=== PATIENT | female | born 1970 | race Caucasian/White ===

== ENCOUNTER 2016-08-29 08:18 | Emergency (ER) | payer MEDICAID ==
[~2016-08-29] VITALS: Wt 56.0 kg
[2016-08-29] MEDS ORDERED: ONDANSETRON 4 MG INJ IV STA (08:51)
[2016-08-29] MEDS ORDERED: FAMOTIDINE 20 MG INJ IV STA (08:51)
[2016-08-29] MEDS ORDERED: LIDOCAINE/MYLANTA 40 ML BTL PO STA (08:51)
[2016-08-29] MEDS ORDERED: BELLADONNA/PHENOBARBITAL TAB PO STA (08:51)
[2016-08-29] MEDS ORDERED: SOD CHLORIDE 0.9% 1,000 ML IV STA (08:51)
[2016-08-29 09:11] LABS: ADD SCAN DIFF NO
[2016-08-29 09:16] LABS: BASOPHILS % 0.4 % (0.0-2.0); EOSINOPHILS # 0.1 10^3/ul (0.0-0.5); EOSINOPHILS % 1.6 % (0.0-7.0); HEMATOCRIT 39.7 % (37.0-47.0); HEMOGLOBIN 13.4 g/dl (12.0-16.0); LYMPHOCYTES % 22.4 % (15.0-51.0); MEAN CORPUSCULAR HEMOGLOBIN 31.9 pg (29.0-33.0); MEAN CORPUSCULAR HGB CONC 33.8 g/dl (32.0-37.0); MEAN CORPUSCULAR VOLUME 94.5 fl (82.0-101.0); MEAN PLATELET VOLUME 10.5 fl (7.4-10.4); MONOCYTE # 0.4 10^3/ul (0.3-0.9); MONOCYTES % 8.6 % (0.0-11.0); NEUTROPHILS % 66.8 % (39.0-77.0); PLATELET COUNT 220 10^3/UL (140-415); RED CELL DISTRIBUTION WIDTH 12.6 % (11.5-14.5); WHITE BLOOD COUNT 4.5 10^3/ul (4.8-10.8)
[2016-08-29 09:19] LABS: ADD UMIC YES; URINE BILIRUBIN (Dip) NEGATIVE (NEGATIVE); URINE BLOOD (Dip) NEGATIVE (NEGATIVE); URINE COLOR LT. YELLOW (YELLOW); URINE GLUCOSE (Dip) NEGATIVE (NEGATIVE); URINE KETONES (Dip) NEGATIVE (NEGATIVE); URINE LEUKOCYTE ESTERASE (Dip) TRACE (NEGATIVE); URINE NITRITE (Dip) NEGATIVE (NEGATIVE); URINE TOTAL PROTEIN (Dip) NEGATIVE (NEGATIVE); URINE UROBILINOGEN (Dip) 0.2 E.U./dL (0.1-1.0)
[2016-08-29 09:26] LABS: ALBUMIN 4.1 g/dl (3.3-4.9)
[2016-08-29 09:27] LABS: POTASSIUM 4.1 mmol/L (3.5-5.1)
[2016-08-29 09:29] LABS: ALBUMIN/GLOBULIN RATIO 1.28; BILIRUBIN,INDIRECT 0.5 mg/dl (0-1.1); BILIRUBIN,TOTAL 0.5 mg/dl (0.2-1.3); CREATININE 0.53 mg/dl (0.44-1.00); TOTAL PROTEIN 7.3 g/dl (6.1-8.1)
--- NOTE | 2016-08-29 09:40 | RADRPT ---
PROCEDURE: US Abdomen. CLINICAL INDICATION: abdominal pain TECHNIQUE: Multiple real-time images were acquired of the patient's right upper quadrant abdomen a nd retroperitoneum utilizing a high resolution transducer. COMPARISON: None FINDINGS: The liver demonstrates normal echogenicity. The liver is normal in size and no focal solid lesions are seen. The liver measures 13.7 cm in length. The portal vein is patent with normal direction of f low. No intrahepatic biliary dilatation is seen. No gallstones are identified within the gallbladder. There is no pericholecystic fluid or gallbladd er wall thickening. The common bile duct measures 3 mm in maximal dimension. The visualized portions of the pancreas are unremarkable. The tail of the pancreas is not seen. No free fluid is identified. The right kidney is normal in size, and demonstrate normal echogenicity and cortical thickness. The right kidney measures 10.6 cm in long dimension. There is no evidence of hydronephrosis. There are no kidney stones. RPTAT: AA IMPRESSION: Unremarkable right upper quadrant abdominal ultrasound. .Stephen Pat MD, Date Time Electronically viewed and signed by .Stephen Pat MD, on 08/29/2016 09:40 .S/
[2016-08-29] MEDS ORDERED: SUCR1TAB56 PO (09:50)
[2016-08-29] MEDS ORDERED: FAMO-18 PO (09:50)
[2016-08-29 09:55] LABS: URINE RBCS 0-2 /HPF (0)
[2016-08-29 10:06] VITALS: BP 132/69; PULSE 73; RESP 18; TEMP 97.6
--- NOTE | 2016-08-29 10:25 | ERD ---
ER Documentation Chief Complaint Date/Time DATE: 08/29/16 TIME: 10:21 Chief Complaint ABD PAIN FOLLOWING FOOD INTAKE X 2 WEEKS HPI This is a 46-year-old female that presents to the ER with epigastric pain for the last 2 weeks. Patient states that epigastric pain radiates to the left upper quadrant. Patient admits to nausea however denies vomiting. Patient has intermittent bouts of constipation and diarrhea. Patient states that pain is worse after she eats something. Pain is burning in quality. She has not tried anything for the pain. She denies any fevers or chills. She denies any urinary frequency or dysuria. She denies any recent travel. ROS 12 point review of systems was done, all negative except per HPI. Medications Home Meds Active Scripts Sucralfate* (Carafate*) 1 Gm Tab, 1 GM PO QID for 7 Days, TAB Prov:THELMA,ALEKS C 08/29/16 Famotidine* (Pepcid*) 20 Mg Tablet, 20 MG PO BID for 14 Days, TAB Prov:THELMA,ALEKS C 08/29/16 Allergies Allergies: Coded Allergies: No Known Allergies (Verified Allergy, Mild, 08/29/16) PMhx/Soc History of Surgery: No Hx Neurological Disorder: No Hx Respiratory Disorders: No Hx Cardiac Disorders: No Hx Miscellaneous Medical Probl: Yes (THYROID) Hx Alcohol Use: No Hx Substance Use: No Hx Tobacco Use: No Smoking Status: Never smoker Physical Exam Vitals Vital Signs Date Time Temp Pulse Resp B/P Pulse Ox O2 Delivery O2 Flow Rate FiO2 08/29/16 10:06 97.6 73 18 132/69 99 Room Air 08/29/16 08:21 98.0 59 18 140/77 99 Physical Exam GENERAL: The patient is well developed and appropriate for usual state of health , in no apparent distress. HEENT: Atraumatic. CHEST: Clear to auscultation bilaterally. There are no rales, wheezes or rhonchi. HEART: Regular rate and rhythm. No murmurs, clicks, rubs or gallops. ABDOMEN: Soft, nontender and nondistended. Good bowel sounds. No rebound or guarding. No gross peritonitis. No gross organomegaly or masses. No Mayfield sign or McBurney point tenderness. NEURO: Alert and oriented. . SKIN: There is no apparent rash or petechia. The skin is warm and dry. Result Diagram: 08/29/16 0900 08/29/16 0900 Results 24 hrs Laboratory Tests Test 08/29/16 09:00 White Blood Count 4.510^3/ul Red Blood Count 4.2010^6/ul Hemoglobin 13.4g/dl Hematocrit 39.7% Mean Corpuscular Volume 94.5fl Mean Corpuscular Hemoglobin 31.9pg Mean Corpuscular Hemoglobin Concent 33.8g/dl Red Cell Distribution Width 12.6% Platelet Count 98010^3/UL Mean Platelet Volume 10.5fl Neutrophils % 66.8% Lymphocytes % 22.4% Monocytes % 8.6% Eosinophils % 1.6% Basophils % 0.4% Nucleated Red Blood Cells % 0.0/100WBC Neutrophils # 3.010^3/ul Lymphocytes # 1.010^3/ul Monocytes # 0.410^3/ul Eosinophils # 0.110^3/ul Basophils # 0.010^3/ul Nucleated Red Blood Cells # 0.010^3/ul Urine Color LT. YELLOW Urine Clarity CLEAR Urine pH 7.0 Urine Specific [place] 1.010 Urine Ketones NEGATIVE Urine Nitrite NEGATIVE Urine Bilirubin NEGATIVE Urine Urobilinogen 0.2 E.U./dL Urine Leukocyte Esterase TRACE Urine Microscopic RBC 0-2/HPF Urine Microscopic WBC 0-2/HPF Urine Epithelial Cells OCCASIONAL Urine Hemoglobin NEGATIVE Urine Glucose NEGATIVE% Urine Total Protein NEGATIVE Sodium Level 143mmol/L Potassium Level 4.1mmol/L Chloride Level 103mmol/L Carbon Dioxide Level 29mmol/L Anion Gap 15 Blood Urea Nitrogen 13mg/dl Creatinine 0.53mg/dl Glucose Level 98mg/dl Calcium Level 9.0mg/dl Total Bilirubin 0.5mg/dl Direct Bilirubin 0.00mg/dl Indirect Bilirubin 0.5mg/dl Aspartate Amino Transf (AST/SGOT) 31IU/L Alanine Aminotransferase (ALT/SGPT) 27IU/L Alkaline Phosphatase 72IU/L Total Protein 7.3g/dl Albumin 4.1g/dl Globulin 3.20g/dl Albumin/Globulin Ratio 1.28 Lipase 83U/L Current Medications Medications (Trade) Dose Ordered Sig/Mary Route PRN Reason Start Time Stop Time Status Last Admin Dose Admin Sodium Chloride (NS) 1,000 ml @ 1,000 mls/hr Q1H STAT IV 08/29/16 08:51 08/29/16 09:50 DC 08/29/16 09:05 Ondansetron HCl (Zofran Inj) 4 mg ONCE STAT IV 08/29/16 08:51 08/29/16 08:54 DC 08/29/16 09:05 Famotidine (Pepcid Iv) 20 mg ONCE STAT IV 08/29/16 08:51 08/29/16 08:54 DC 08/29/16 09:05 Miscellaneous Medication (Gi Cocktail (2)) 40 ml ONCE STAT PO 08/29/16 08:51 08/29/16 08:54 DC 08/29/16 09:05 Belladonna/ Phenobarbital () 2 tab ONCE STAT PO 08/29/16 08:51 08/29/16 08:54 DC 08/29/16 09:05 Procedures/MDM Differential Diagnosis: GERD, gastritis, peptic ulcer disease, pancreatitis, cholecystitis, choledocholithiasis, biliary colic, cholangitis, [id number] , ACS/HI, Pnuemonia . At this time etiology of patients abdominal pain is unknown, however patient may have GERD with a possible ulcer. Patient's labwork was normal with no evidence of anemia, infections or electrolyte abnormalities. Patient is afebrile and well appearing. Her pain was controlled in the ER. She will be sent home with Famotidine and Carafate. Patient needs to f/u with her PCP within 1-2 days or return to ER sooner if symptoms worsen. My medical decision making was shared with the patient, she understands and agrees with plan. Departure Diagnosis: Primary Impression: Abdominal pain Condition: Stable Patient Instructions: What Is GERD?, Lifestyle Changes for Controlling GERD Additional Instructions: Llame al doctor MAANA y lucas ronald DERRELL PARA DENTRO DE 1-2 RAO.Dgale a la secretaria que nosotros le instruimos hacer esta derrell.Avise o llame si kennedy condicin se empeora antes de la derrell. Regresa aqui si peor o no mejor. PIDELE A TU DOCTOR RONALD AUTORIZACION PARA BONY A UN GASTROENTEROLOGO. ALEKS RENEE Aug 29, 2016 10:25
== END 2016-08-29 10:06 | disposition home or self-care (01) ==
LOC: FTE 08:18
DX: R10.13 Epigastric pain (principal); R11.0 Nausea
CPT/HCPCS: 36415; 76705; 80053; 81001; 81003; 83690; 85025; 96361; 96374; 96375; J2405; J7030; Z7502; Z7610